=== PATIENT | female | born 1960 ===

== ENCOUNTER 2017-09-24 07:31 | Emergency (ER) | payer SELFPAY ==
[2017-09-24 07:42] VITALS: BP 134/78; RESP 18; TEMP 98.3; O2SAT 100
--- NOTE | 2017-09-24 08:34 | C.PDOC ---
History Of Present Illness 57 y/o female presents to ED with c/o bilateral knee pain Left greater than right for 2 weeks. Patient has taken Tylenol 500 mg daily with no improvement and denies injury, fever, numbness or any other complaints at this time. Time Seen by Provider: 09/24/17 07:55 Chief Complaint (Nursing): Lower Extremity Problem/Injury History Per: Patient History/Exam Limitations: no limitations Onset/Duration Of Symptoms: Days Current Symptoms Are (Timing): Still Present Past Medical History Reviewed: Historical Data, Nursing Documentation, Vital Signs Vital Signs: Last Vital Signs Temp 98.3 F 09/24/17 07:39 Pulse 77 09/24/17 09:40 Resp 18 09/24/17 07:39 BP 134/78 09/24/17 07:39 Pulse Ox 100 09/24/17 09:40 - Medical History PMH: Gastritis Surgical History: No Surg Hx Family History: States: No Known Family Hx - Social History Hx Tobacco Use: No Hx Alcohol Use: No Hx Substance Use: No - Immunization History Hx Tetanus Toxoid Vaccination: No Hx Influenza Vaccination: No Hx Pneumococcal Vaccination: No Review Of Systems Constitutional: Negative for: Fever, Chills Cardiovascular: Negative for: Chest Pain Musculoskeletal: Positive for: Leg Pain. Negative for: Foot Pain Skin: Negative for: Rash, Bruising Physical Exam - Physical Exam Appears: Non-toxic, No Acute Distress Skin: Warm, Dry, No Rash Head: Atraumatic, Normacephalic Eye(s): bilateral: Normal Inspection Oral Mucosa: Moist Extremity: Tenderness (diffuse bilateral knees), No Calf Tenderness, Capillary Refill (<2 seconds), No Deformity, No Swelling, Other (pain with flexion bilateral knees. no erythema, swelling or warmth ot either knee. ) Pulses: Left Dorsalis Pedis: Normal, Right Dorsalis Pedis: Normal Neurological/Psych: Oriented x3, Normal Speech, Normal Cognition, Normal Motor, Normal Sensation ED Course And Treatment O2 Sat by Pulse Oximetry: 100 (RA) Pulse Ox Interpretation: Normal Medical Decision Making Medical Decision Making: pt with 2 week bilateral nknee pain, no sign of infection, no calf tenderness, no swelling or redness. tx with nsaids. f.u ortho clinic Disposition Counseled Patient/Family Regarding: Diagnosis, Need For Followup, Rx Given - Disposition Referrals: Orthopedic Clinic at [place] [Outside] [facility] [Outside] Disposition: HOME/ ROUTINE Disposition Time: 08:53 Condition: IMPROVED Additional Instructions: Por favor, tome ibuprofeno (con alimentos) segn lo prescrito para el dolor. Llame a la clnica mdica para programar cecilia tamia con la clnica ortopdica de [place] o llame a la clnica Ortho en [place]. Please take Ibuprofen (with food) as prescribed for pain. Call medical clinic to make an appointment with the ortho clinic at [facility] or call Ortho clinic at [place]. Prescriptions: Ibuprofen [Motrin] 600 mg PO TID #30 tab Instructions: Knee Pain (DC) Forms: Gen Discharge Inst [place], [employer] ([place]) Print Language: MALIAN - Clinical Impression Clinical Impression: Bilateral knee pain - PA / VALIDATION LEADER / Resident Statement MD/DO has reviewed & agrees with the documentation as recorded. - Scribe Statement The provider has reviewed the documentation as recorded by the Yesyibtalia Mcpherson All medical record entries made by the Yesyibe were at my direction and personally dictated by me. I have reviewed the chart and agree that the record accurately reflects my personal performance of the history, physical exam, medical decision making, and the department course for this patient. I have also personally directed, reviewed, and agree with the discharge instructions and disposition.
[2017-09-24 09:41] VITALS: PULSE 77
== END 2017-09-24 09:40 | disposition home or self-care (01) ==
LOC: C.ER 07:31
DX: M25.562 Pain in left knee (principal); M25.561 Pain in right knee
CPT/HCPCS: 96372; 99284; J1885

== ENCOUNTER 2018-03-30 09:53 | Outpatient (CLI) | payer SELFPAY | END 2018-03-30 09:54 | disposition home or self-care (01) | LOC: C.MRIC 09:53 | DX: M25.562 Pain in left knee (principal) ==

== ENCOUNTER 2018-08-10 06:24 | Day surgery (SDC) | payer SELFPAY ==
[2018-08-10 07:09] VITALS: BMI 25.4
--- NOTE | 2018-08-10 07:48 | CP.SDSHP ---
<Lisseth Suh - Last Filed: 08/10/18 07:48> Same Day Surgery H & P - History Proposed Procedure: EGD Pre-Op Diagnosis: epigastric pain. persistent heartburn - Allergies Allergies: Allergies No Known Allergies Allergy (Verified 08/10/18 06:58) - Current Medications Current Medications: Pantoprazole naproxen - Physical Exam General Appearance: no acute distress Vital Signs: Vital Signs 08/10/18 06:40 Temperature 98. F Pulse Rate 80 Respiratory 20 Rate Blood Pressure 116/66 O2 Sat by Pulse 97 Oximetry Mental Status: Alert & Oriented x3 Neuro: WNL Heart: WNL Lungs: WNL GI: WNL - {Optional Preform as Required} Abdomen: Other (reflux, GERD) - Impression Impression: epigastric pain. persistent GERD Pt. Evaluated Today:Candidate for Anesthesia & Procedure: Yes - Date & Time Date: 08/10/18 Time: 07:30 Short Stay Discharge - Short Stay Discharge Admitting Diagnosis/Reason for Visit: HEARTBURN, EPIGASTRIC PAIN, NAUSEA WITH VOMITING, Disposition: HOME/ ROUTINE <Cahndler Garcia - Last Filed: 08/10/18 08:38> Same Day Surgery H & P - Allergies Allergies: Allergies No Known Allergies Allergy (Verified 08/10/18 06:58) - Physical Exam Vital Signs: Vital Signs 08/10/18 06:40 Temperature 98. F Pulse Rate 80 Respiratory 20 Rate Blood Pressure 116/66 O2 Sat by Pulse 97 Oximetry Attending/Attestation - Attestation I have personally seen and examined this patient.: Yes I have fully participated in the care of the patient.: Yes I have reviewed all pertinent clinical information: Yes Notes (Text): 08/10/18 08:37 For EGD to evaluate dysphagia, heartburn and epigastric pain not responding to PPI. Risks/benefits understood and discussed.
[2018-08-10] MEDS ORDERED: Propofol 10 mg/ml Inj (20 ML) ONE (07:56)
[2018-08-10] MEDS ORDERED: Lactated Ringer's 1,000 ML IV ONE (08:00)
[2018-08-10 08:52] VITALS: TEMP 97.8
[2018-08-10 08:58] VITALS: RESP 14; O2SAT 98
[2018-08-10 09:27] VITALS: BP 111/75; PULSE 60
== END 2018-08-10 09:35 | disposition home or self-care (01) ==
LOC: C.ENDO 06:24
PROVIDERS: ATTEND Internal Medicine Gastroenterology
DX: K29.50 Unspecified chronic gastritis without bleeding (principal); K29.80 Duodenitis without bleeding; K21.0 Gastro-esophageal reflux disease with esophagitis; R10.13 Epigastric pain; R11.2 Nausea with vomiting, unspecified; B96.81 Helicobacter pylori [H. pylori] as the cause of diseases classified elsewhere; Z80.0 Family history of malignant neoplasm of digestive organs
CPT/HCPCS: 43239; 88305; 88312; 88342; J2001; J2704; J7120